=== PATIENT | female | born 1965 | race Hispanic/Latino ===

== ENCOUNTER 2021-12-13 22:13 | Emergency (ER) | payer SELFPAY ==
[~2021-12-13 22:13] MED LIST: Iopamidol-370 76% 500 ML 1 ML ONE
[2021-12-13 22:49] LABS: #Basophils 0.1 thou/uL (0.0-0.2); #Eosinphils 0.2 thou/uL (0.0-0.7); #Lymphocytes 3.8 thou/uL (1.20-3.40); #Monocytes 0.9 thou/uL (0.11-0.59); #Neutrophils 4.8 thou/uL (1.40-6.50); %Basophils 0.6 % (0.0-1.0); %Eosinophils 1.9 % (0.0-10.0); %Neutrophils 49.5 % (42.0-75.0); Hemoglobin 12.6 g/dL (12.0-16.0); Mean Corpuscular HGB CONC 31.6 g/dL (32.0-36.0); Mean Corpuscular Hemoglobin 30.3 pg (27.0-31.0); Mean Corpuscular Volume 95.9 fL (78.0-98.0); Mean Platelet Volume 9.6 fL (7.4-10.4); Platelet Count 186 thou/uL (130-400); RBC Distribution Width 13.5 % (11.5-14.5); Red Blood Cell (RBC) Count 4.15 mill/uL (4.20-5.40); White Blood Cell (WBC) Count 9.6 thou/uL (4.8-10.8)
[2021-12-13 23:10] LABS: ALT (SGPT) 42 U/L (8-55); AST (SGOT) 56 U/L (5-34); Albumin 3.2 g/dL (3.5-5.0); Alkaline Phosphatase 179 U/L (40-110); Anion Gap 14 mmol/L (10-20); BUN (Urea Nitrogen) 32 mg/dL (9.8-20.1); Calc. Creatinine Clearance 0 mL/min (70-130); Calcium 8.8 mg/dL (7.8-10.44); Carbon Dioxide 22 mmol/L (22-29); Chloride 104 mmol/L (98-107); Estimated GFR 54; Globulin 3.7 g/dL (2.4-3.5); Glucose 126 mg/dL (70-105); Potassium 4.3 mmol/L (3.5-5.1); Protein, Total 6.9 g/dL (6.0-8.3); Sodium 136 mmol/L (136-145)
[2021-12-13] MEDS ORDERED: Ondansetron PF 4 MG/2 ML Vial ONE (23:18)
[2021-12-13] MEDS ORDERED: Morphine 4 MG/ML VIAL ONE (23:18)
[2021-12-14 00:56] LABS: Bacteria/HPF None Seen HPF (None Seen); Bilirubin Negative (Negative); Blood, Urine Negative (Negative); Clarity Clear (Clear); Glucose, Urine (Dipstick) Normal (Negative); Ketone, Urine Negative (Negative); Leukocyte Negative Leu/uL (Negative); Nitrite Negative (Negative); Protein, Urine (Dipstick) 100 mg/dL (Neg-Trace); RBC/HPF 0-3 HPF (0-3); Squamous Epithelial 0-3 HPF (0-3); Urobilinogen Normal mg/dL (Less than 2)
== END 2021-12-14 01:46 | disposition home or self-care (01) ==
LOC: ERS 22:13
DX: R10.13 Epigastric pain (principal); R18.8 Other ascites; I10 Essential (primary) hypertension
CPT/HCPCS: 36415; 74177; 80053; 81003; 81015; 83690; 84484; 85025; 87086; 93005; 96374; 96375; J2270; J2405

== ENCOUNTER 2021-12-22 18:55 | Inpatient (IN) | payer OTHER, SELFPAY ==
[2021-12-22 19:36] LABS: #Basophils 0.1 thou/uL (0.0-0.2); #Eosinphils 0.1 thou/uL (0.0-0.7); #Monocytes 0.6 thou/uL (0.11-0.59); %Basophils 0.7 % (0.0-1.0); %Eosinophils 1.2 % (0.0-10.0); %Lymphocytes 38.7 % (21.0-51.0); %Neutrophils 51.4 % (42.0-75.0); Hemoglobin 13.6 g/dL (12.0-16.0); Mean Corpuscular HGB CONC 32.3 g/dL (32.0-36.0); Mean Corpuscular Hemoglobin 30.5 pg (27.0-31.0); Mean Corpuscular Volume 94.4 fL (78.0-98.0); Mean Platelet Volume 9.7 fL (7.4-10.4); Platelet Count 169 thou/uL (130-400); RBC Distribution Width 13.6 % (11.5-14.5); Red Blood Cell (RBC) Count 4.46 mill/uL (4.20-5.40); White Blood Cell (WBC) Count 7.9 thou/uL (4.8-10.8)
[2021-12-22 19:55] LABS: ALT (SGPT) 32 U/L (8-55); AST (SGOT) 43 U/L (5-34); Albumin 3.5 g/dL (3.5-5.0); Alkaline Phosphatase 148 U/L (40-110); Anion Gap 13 mmol/L (10-20); BUN (Urea Nitrogen) 20 mg/dL (9.8-20.1); Bilirubin, Total 0.8 mg/dL (0.2-1.2); Calc. Creatinine Clearance 0 mL/min (70-130); Calcium 9.2 mg/dL (7.8-10.44); Carbon Dioxide 24 mmol/L (22-29); Chloride 104 mmol/L (98-107); Estimated GFR 50; Globulin 4.3 g/dL (2.4-3.5); Glucose 108 mg/dL (70-105); Lipase 119 U/L (8-78); Potassium 4.2 mmol/L (3.5-5.1); Protein, Total 7.8 g/dL (6.0-8.3); Sodium 137 mmol/L (136-145)
[2021-12-22 20:20] LABS: CKMB 4.9 ng/mL (0-6.6)
[2021-12-22] MEDS ORDERED: Famotidine 20 MG TAB ONE (20:22)
[2021-12-22] MEDS ORDERED: Aspirin 325 MG TAB ONE (20:22)
[2021-12-22] MEDS ORDERED: Lidocaine 1% PF 5 ML VIAL ONE (21:14)
[2021-12-22] MEDS ORDERED: Furosemide 40 MG/4 ML VIAL ONE (22:11)
[2021-12-22] MEDS ORDERED: Nitroglycerin 2% Ointment 1 INCH/1 GM Packet ONE (22:11)
[2021-12-22] MEDS ORDERED: Enoxaparin Sodium 60 MG/0.6 ML SYRINGE ONE (23:03)
[2021-12-22] MEDS ORDERED: Acetaminophen 500 MG TAB ONE (23:31)
[2021-12-22] MEDS ORDERED: Morphine 2 MG/ML VIAL ONE (23:58)
[2021-12-23] MEDS ORDERED: Morphine 4 MG/ML VIAL ONE (01:03)
[2021-12-23 01:14] LABS: Troponin I 0.062 ng/mL (< 0.028)
[2021-12-23] MEDS ORDERED: Morphine 2 MG/ML VIAL SLOW IVP SCH (01:15)
[2021-12-23 01:39] VITALS: BMI 26.2
[2021-12-23 05:13] LABS: Troponin I 0.059 ng/mL (< 0.028)
[2021-12-23] MEDS ORDERED: Ondansetron PF 4 MG/2 ML Vial IVP PRN (05:21)
[2021-12-23 05:42] LABS: #Basophils 0.1 thou/uL (0.0-0.2); #Lymphocytes 2.9 thou/uL (1.20-3.40); #Monocytes 0.7 thou/uL (0.11-0.59); #Neutrophils 3.5 thou/uL (1.40-6.50); %Basophils 0.8 % (0.0-1.0); %Eosinophils 0.6 % (0.0-10.0); %Lymphocytes 40.5 % (21.0-51.0); %Monocytes 9.4 % (0.0-10.0); %Neutrophils 48.6 % (42.0-75.0); Hemoglobin 12.4 g/dL (12.0-16.0); Mean Corpuscular HGB CONC 32.1 g/dL (32.0-36.0); Mean Corpuscular Hemoglobin 30.5 pg (27.0-31.0); Mean Corpuscular Volume 94.9 fL (78.0-98.0); Mean Platelet Volume 10.1 fL (7.4-10.4); Platelet Count 154 thou/uL (130-400); RBC Distribution Width 13.6 % (11.5-14.5); Red Blood Cell (RBC) Count 4.07 mill/uL (4.20-5.40); White Blood Cell (WBC) Count 7.3 thou/uL (4.8-10.8)
[2021-12-23 05:59] LABS: ALT (SGPT) 28 U/L (8-55); AST (SGOT) 36 U/L (5-34); Albumin 3.1 g/dL (3.5-5.0); Alkaline Phosphatase 125 U/L (40-110); Bilirubin, Direct 0.4 mg/dL (0.1-0.3); Bilirubin, Total 0.7 mg/dL (0.2-1.2); Magnesium 1.7 mg/dL (1.6-2.6); Protein, Total 6.7 g/dL (6.0-8.3)
[2021-12-23 06:00] LABS: Anion Gap 17 mmol/L (10-20); BUN (Urea Nitrogen) 18 mg/dL (9.8-20.1); Calc. Creatinine Clearance 59 mL/min (70-130); Calcium 8.9 mg/dL (7.8-10.44); Carbon Dioxide 21 mmol/L (22-29); Chloride 105 mmol/L (98-107); Estimated GFR 65; Glucose 76 mg/dL (70-105); Lipase 53 U/L (8-78); Potassium 3.5 mmol/L (3.5-5.1); Sodium 139 mmol/L (136-145)
[2021-12-23] MEDS: Furosemide 40 MG/4 ML VIAL SLOW IVP SCH ×2 (06:31→14:36)
[2021-12-23] MEDS: Enoxaparin Sodium 40 MG/0.4 ML SYRINGE SC SCH (09:13)
[2021-12-23] MEDS: Acetaminophen 325 MG TAB PO PRN ×2 (09:21→23:37)
[2021-12-23] MEDS ORDERED: Magnesium 2 GM/50 ML(in water) 2 GM in Premix Bag 1 BAG IVPB SCH (14:00)
[2021-12-23] MEDS ORDERED: Iopamidol 370 76% 100 ML VIAL ONE (15:46)
[2021-12-23] MEDS: Carvedilol 3.125 MG TAB PO SCH (16:55)
[2021-12-23] MEDS ORDERED: Potassium Chloride 20 MEQ TAB PO SCH (17:00)
[2021-12-23 20:45] LABS: Anion Gap 16 mmol/L (10-20); BUN (Urea Nitrogen) 21 mg/dL (9.8-20.1); Calc. Creatinine Clearance 51 mL/min (70-130); Calcium 9.1 mg/dL (7.8-10.44); Carbon Dioxide 29 mmol/L (22-29); Chloride 96 mmol/L (98-107); Estimated GFR 54; Glucose 140 mg/dL (70-105); Potassium 3.6 mmol/L (3.5-5.1); Sodium 137 mmol/L (136-145)
[2021-12-23] MEDS: Atorvastatin Calcium 40 MG TAB PO SCH (22:16)
[2021-12-23] MEDS ORDERED: Ketorolac Tromethamine 30 MG/ML VIAL IVP SCH (23:45)
[2021-12-24 04:46] LABS: #Basophils 0.1 thou/uL (0.0-0.2); #Eosinphils 0.1 thou/uL (0.0-0.7); #Lymphocytes 2.3 thou/uL (1.20-3.40); #Monocytes 0.9 thou/uL (0.11-0.59); #Neutrophils 5.7 thou/uL (1.40-6.50); %Basophils 1.1 % (0.0-1.0); %Eosinophils 1.5 % (0.0-10.0); %Lymphocytes 25.1 % (21.0-51.0); %Monocytes 9.5 % (0.0-10.0); %Neutrophils 62.8 % (42.0-75.0); Hemoglobin 14.2 g/dL (12.0-16.0); Mean Corpuscular HGB CONC 32.3 g/dL (32.0-36.0); Mean Corpuscular Hemoglobin 30.2 pg (27.0-31.0); Mean Corpuscular Volume 93.4 fL (78.0-98.0); Mean Platelet Volume 10.4 fL (7.4-10.4); Platelet Count 165 thou/uL (130-400); RBC Distribution Width 13.4 % (11.5-14.5)
[2021-12-24 05:05] LABS: Anion Gap 14 mmol/L (10-20); BUN (Urea Nitrogen) 22 mg/dL (9.8-20.1); Calc. Creatinine Clearance 58 mL/min (70-130); Calcium 8.7 mg/dL (7.8-10.44); Carbon Dioxide 29 mmol/L (22-29); Cardiac Risk 3.5 (Less than 4.5); Chloride 97 mmol/L (98-107); Cholesterol 105 mg/dl (< 200 Desired); Estimated GFR 63; Glucose 97 mg/dL (70-105); HDL Cholesterol 30 mg/dL (>60 Neg Risk); LDL Cholesterol, Calculated 59 mg/dL; Magnesium 1.9 mg/dL (1.6-2.6); Potassium 3.2 mmol/L (3.5-5.1); Sodium 137 mmol/L (136-145); Triglycerides 78 mg/dL (Less than 150)
[2021-12-24 05:22] LABS: Free T4 (Free Thyroxine) 1.06 ng/dL (0.70-1.48); Thyroid Stimulating Hormone 1.8321 uIU/mL (0.35-4.94)
[2021-12-24] MEDS: Furosemide 40 MG/4 ML VIAL SLOW IVP SCH (05:58)
[2021-12-24] MEDS: Potassium Chloride 20 MEQ TAB PO SCH ×2 (09:23→16:25)
[2021-12-24] MEDS: Carvedilol 3.125 MG TAB PO SCH ×2 (09:23→16:25)
[2021-12-24] MEDS: Enoxaparin Sodium 40 MG/0.4 ML SYRINGE SC SCH (09:23)
[2021-12-24] MEDS: Aspirin Chewable 81 MG TAB PO SCH (09:23)
[2021-12-24] MEDS ORDERED: Communication Order-Pharmacy FS SCH (10:30)
[2021-12-24] MEDS ORDERED: Magnesium 2 GM/50 ML(in water) 2 GM in Premix Bag 1 BAG IVPB SCH (11:00)
[2021-12-24] MEDS ORDERED: Bisacodyl 10 MG SUPP PR PRN (16:03)
[2021-12-24] MEDS: Atorvastatin Calcium 40 MG TAB PO SCH (20:52)
[2021-12-24] MEDS: Senokot S 8.6-50 MG TAB PO SCH (20:52)
[2021-12-24] MEDS: Acetaminophen 325 MG TAB PO PRN (20:53)
[2021-12-25 04:32] LABS: #Basophils 0.2 thou/uL (0.0-0.2); #Eosinphils 0.2 thou/uL (0.0-0.7); #Lymphocytes 3.3 thou/uL (1.20-3.40); #Monocytes 0.8 thou/uL (0.11-0.59); #Neutrophils 3.1 thou/uL (1.40-6.50); %Basophils 2.1 % (0.0-1.0); %Eosinophils 2.5 % (0.0-10.0); %Lymphocytes 43.6 % (21.0-51.0); %Neutrophils 41.8 % (42.0-75.0); Hemoglobin 14.7 g/dL (12.0-16.0); Mean Corpuscular HGB CONC 31.1 g/dL (32.0-36.0); Mean Corpuscular Hemoglobin 29.5 pg (27.0-31.0); Mean Platelet Volume 10.1 fL (7.4-10.4); Platelet Count 180 thou/uL (130-400); RBC Distribution Width 13.4 % (11.5-14.5); Red Blood Cell (RBC) Count 4.97 mill/uL (4.20-5.40); White Blood Cell (WBC) Count 7.5 thou/uL (4.8-10.8)
[2021-12-25 05:03] LABS: Anion Gap 13 mmol/L (10-20); BUN (Urea Nitrogen) 20 mg/dL (9.8-20.1); Calc. Creatinine Clearance 58 mL/min (70-130); Calcium 8.6 mg/dL (7.8-10.44); Carbon Dioxide 23 mmol/L (22-29); Chloride 102 mmol/L (98-107); Estimated GFR 64; Glucose 96 mg/dL (70-105); Magnesium 2.2 mg/dL (1.6-2.6); Potassium 4.4 mmol/L (3.5-5.1); Sodium 134 mmol/L (136-145)
[2021-12-25] MEDS ORDERED: Sodium Chloride 0.9% 1,000 ML IV SCH (06:00)
[2021-12-25] MEDS ORDERED: Lidocaine 1% MPF 2 ML VIAL ONE ×2 (06:26→06:34)
[2021-12-25] MEDS ORDERED: Midazolam HCl 2 mg/2 ml Vial ONE (07:09)
[2021-12-25] MEDS ORDERED: Fentanyl 100 MCG/2 ML VIAL ONE (07:09)
[2021-12-25] MEDS ORDERED: Nitroglycerin 100MG/250ML BOT 0 ML ONE (07:42)
[2021-12-25] MEDS ORDERED: Sodium Chloride 0.9% 200 ML IV PRN (08:14)
[2021-12-25] MEDS ORDERED: Nitroglycerin 0.4 MG TAB (25 Tab Bottle) SL PRN (08:14)
[2021-12-25] MEDS ORDERED: Iopamidol 370 76% 100 ML VIAL ONE (08:48)
[2021-12-25] MEDS: Carvedilol 3.125 MG TAB PO SCH ×2 (09:56→17:48)
[2021-12-25] MEDS: Aspirin Chewable 81 MG TAB PO SCH (09:56)
[2021-12-25] MEDS: Senokot S 8.6-50 MG TAB PO SCH ×2 (09:56→21:02)
[2021-12-25] MEDS: Polyethylene Glycol 3350 17 GM Packet PO SCH (09:56)
[2021-12-25] MEDS: Potassium Chloride 20 MEQ TAB PO SCH ×3 (10:09→10:22)
[2021-12-25] MEDS: Acetaminophen 325 MG TAB PO PRN (17:48)
[2021-12-25] MEDS: Acetaminophen/Codeine 30-300mg Tablet PO PRN (21:02)
[2021-12-25] MEDS: Atorvastatin Calcium 40 MG TAB PO SCH (21:02)
[2021-12-26 05:14] LABS: Anion Gap 13 mmol/L (10-20); BUN (Urea Nitrogen) 16 mg/dL (9.8-20.1); Calc. Creatinine Clearance 64 mL/min (70-130); Calcium 8.7 mg/dL (7.8-10.44); Carbon Dioxide 24 mmol/L (22-29); Chloride 104 mmol/L (98-107); Estimated GFR 80; Glucose 89 mg/dL (70-105); Magnesium 1.9 mg/dL (1.6-2.6); Potassium 4.5 mmol/L (3.5-5.1); Sodium 136 mmol/L (136-145)
[2021-12-26 05:21] LABS: #Basophils 0.1 thou/uL (0.0-0.2); #Eosinphils 0.2 thou/uL (0.0-0.7); #Lymphocytes 2.9 thou/uL (1.20-3.40); #Monocytes 0.7 thou/uL (0.11-0.59); %Basophils 1.4 % (0.0-1.0); %Eosinophils 2.2 % (0.0-10.0); %Lymphocytes 42.3 % (21.0-51.0); %Monocytes 9.9 % (0.0-10.0); %Neutrophils 44.1 % (42.0-75.0); Hemoglobin 14.5 g/dL (12.0-16.0); Mean Corpuscular HGB CONC 30.6 g/dL (32.0-36.0); Mean Corpuscular Hemoglobin 29.3 pg (27.0-31.0); Mean Corpuscular Volume 95.9 fL (78.0-98.0); Mean Platelet Volume 10.1 fL (7.4-10.4); Platelet Count 190 thou/uL (130-400); RBC Distribution Width 13.5 % (11.5-14.5); Red Blood Cell (RBC) Count 4.93 mill/uL (4.20-5.40); White Blood Cell (WBC) Count 6.8 thou/uL (4.8-10.8)
[2021-12-26] MEDS ORDERED: Prevnar 13-Val Conj/PF 0.5 ML SYRINGE IM ONE (09:00)
[2021-12-26] MEDS: Aspirin Chewable 81 MG TAB PO SCH (09:34)
[2021-12-26] MEDS: Acetaminophen/Codeine 30-300mg Tablet PO PRN (09:34)
[2021-12-26] MEDS: Senokot S 8.6-50 MG TAB PO SCH ×2 (09:34→21:23)
[2021-12-26] MEDS: Polyethylene Glycol 3350 17 GM Packet PO SCH (09:34)
[2021-12-26] MEDS: Carvedilol 3.125 MG TAB PO SCH ×2 (09:34→17:54)
[2021-12-26] MEDS: Atorvastatin Calcium 40 MG TAB PO SCH (21:23)
[2021-12-27] MEDS: Senokot S 8.6-50 MG TAB PO SCH (08:47)
[2021-12-27] MEDS: Polyethylene Glycol 3350 17 GM Packet PO SCH (08:47)
[2021-12-27] MEDS: Carvedilol 3.125 MG TAB PO SCH (08:47)
[2021-12-27] MEDS: Acetaminophen/Codeine 30-300mg Tablet PO PRN (08:47)
[2021-12-27] MEDS: Aspirin Chewable 81 MG TAB PO SCH (08:48)
[2021-12-27 10:35] VITALS: TEMP 97.8
[2021-12-27 12:47] VITALS: BP 100/62
== END 2021-12-27 13:00 | disposition home or self-care (01) | DRG 286 ==
LOC: ERS 18:55 → 2NO 22:54
PROVIDERS: ADMIT Internal Medicine; ATTEND Internal Medicine
PROC: 4A023N7 Measurement of Cardiac Sampling and Pressure, Left Heart, Percutaneous Approach (ICD-10-PCS; principal; 2021-12-22)
PROC: B2111ZZ Fluoroscopy of Multiple Coronary Arteries using Low Osmolar Contrast (ICD-10-PCS; 2021-12-22)
PROC: B2151ZZ Fluoroscopy of Left Heart using Low Osmolar Contrast (ICD-10-PCS; 2021-12-22)
DX: I11.0 Hypertensive heart disease with heart failure (principal); I50.23 Acute on chronic systolic (congestive) heart failure; I25.10 Atherosclerotic heart disease of native coronary artery without angina pectoris; I44.7 Left bundle-branch block, unspecified; I08.1 Rheumatic disorders of both mitral and tricuspid valves; I42.8 Other cardiomyopathies; E87.6 Hypokalemia; R77.8 Other specified abnormalities of plasma proteins; K59.00 Constipation, unspecified; Z79.899 Other long term (current) drug therapy; Z90.89 Acquired absence of other organs; Z90.49 Acquired absence of other specified parts of digestive tract
CPT/HCPCS: 36415; 71045; 74177; 80048; 80053; 80061; 80076; 82553; 83690; 83735; 83880; 84439; 84443; 84481; 84484; 85025; 93005; 93010; 93306; 93458; 93798; 94760; 96361; 96372; 96374; 96375; 99152; 99153; C1769; J1650; J1885; J1940; J2250; J2270; J3010; J3475; J7050; Q9967; U0003; U0005